=== PATIENT | female | born 1950 ===

== ENCOUNTER 2017-12-13 07:33 | Emergency (ER) | payer OTHER, MEDICARE ==
[~2017-12-13 07:33] MED LIST: METH2.5 OR; TRAV0.00 EACH EYE; ZOLO100T OR
[2017-12-13 07:36] VITALS: BP 137/67; PULSE 49; RESP 16; TEMP 97.5; O2SAT 96
--- NOTE | 2017-12-13 07:49 | PD ---
HPI Chief Complaint: Fall, head injury Time Seen by Provider: 07:49 Travel History International Travel<30 days: No Contact w/Intl Traveler<30days: No Traveled to known affect area: No History of Present Illness HPI 67-year-old female came to the emergency room after she tripped and fall over her puppy at 630 this morning and hit her head on the wall in front of her. Patient instantly started developing a large hematoma of her scalp and forehead. She had some abrasion of her forehead as well. She has been applying ice pack but she is here with her daughter who brought her into the emergency room. No history of loss of consciousness or syncopal episode. Patient is on one baby aspirin every day. Patient does not recall her last tetanus shot. Patient is complaining of headache and nausea. She took 3 Tylenol before coming in. [facility] Past Medical History Narrative Medical List of her past medical, surgical, social and family history is reviewed from the nursing note. Social History Tobacco Use: No Substance Use: No Allergies-Medications (Allergen,Severity, Reaction): Coded Allergies: codeine (Unverified Allergy, Mild, Rash, 12/13/17) Comments List of her allergies reviewed from the nursing note. Reported Meds & Prescriptions Reported Meds & Active Scripts Active Zofran Odt (Ondansetron Odt) 4 Mg Tab 4 Mg SL Q6HR PRN Bacitracin Topical 500 Unit/Gm Oint 1 Applic TOPICAL BID Reported Ginkgo Biloba (Ginkgo Biloba Hugoton Extract) 60 Mg Tablet 1 Tab PO DAILY Multi Vitamin Daily (Multiple Vitamin) 1 Tab Tab 1 Tab PO DAILY Glucosamine (Glucosamine Sulfate) 1,000 Mg Cap 2,000 Mg PO DAILY Garlic Oil 1000 (Garlic) 1,000 Mg Cap 1 Cap PO DAILY Aspirin Low Dose (Aspirin) 81 Mg Chew 81 Mg CHEW DAILY Turmeric (Turmeric (Curcuma Longa)) 450 Mg-50 Mg Cap 1 Cap PO DAILY Folic Acid 0.8 Mg Cap 1,600 Mcg PO DAILY Vitamin B-6 (Pyridoxine HCl) 100 Mg Tab 100 Mg PO DAILY Vitamin B-12 (Cyanocobalamin) 500 Mcg Subl 500 Mcg SL DAILY Calcipotriene Topical (Calcipotriene) 0.005% Cream 1 Applic TOPICAL BID Cormax Scalp Topical (Clobetasol Propionate) 0.05% Soln 1 Applic TOPICAL BID [tropicort] 0.25 % TOPICAL DIRECTED Sertraline (Sertraline HCl) 100 Mg Tab 100 Mg PO DAILY Methotrexate 2.5 Mg Tab 17.5 Mg PO Q7D Travatan Z Opth Drops (Travoprost) 0.004 % Soln 1 Drop EACH EYE HS Dorzolamide-Timolol Opth Drops 22.3-6.8 Mg/Ml Soln 1 Drop EACH EYE BID Narrative Medication List of her home medications reviewed from the nursing note. Review of Systems Except as stated in HPI: all other systems reviewed are Neg Neurologic: Positive: Headache Physical Exam Narrative GENERAL: Awake, alert, moderate distress SKIN: Focused skin assessment warm/dry. Abrasion on the right side of the forehead, no active bleeding HEAD: Frontal scalp abrasion, large hematoma extending from the frontal scalp all the way to the forehead with bogginess EYES: Pupils equal and round. No scleral icterus. No injection or drainage. ENT: No nasal bleeding or discharge. Mucous membranes pink and moist. NECK: Trachea midline. No JVD. CARDIOVASCULAR: Regular rate and rhythm. No murmur appreciated. RESPIRATORY: No accessory muscle use. Clear to auscultation. Breath sounds equal bilaterally. GASTROINTESTINAL: Abdomen soft, non-tender, nondistended. Hepatic and splenic margins not palpable. MUSCULOSKELETAL: No obvious deformities. No clubbing. No cyanosis. No edema. NEUROLOGICAL: Awake and alert. No obvious cranial nerve deficits. Motor grossly within normal limits. Normal speech. PSYCHIATRIC: Appropriate mood and affect; insight and judgment normal. Data Data Last Documented VS Vital Signs Date Time Temp Pulse Resp B/P (MAP) Pulse Ox O2 Delivery O2 Flow Rate FiO2 12/13/17 09:39 51 16 129/66 (87) 98 12/13/17 07:[address] Brain W/O Iv Contrast(Rout) (12/13/17 ) Ct Cerv Spine W/O Contrast (12/13/17 ) Metoclopramide (Reglan) (12/13/17 08:00) Ibuprofen (Motrin) (12/13/17 09:00) Tetanus/Diphtheria Tox Adult (Tetanus/Di (12/13/17 09:15) Ed Discharge Order (12/13/17 09:14) MDM Medical Decision Making Medical Screen Exam Complete: Yes Emergency Medical Condition: Yes Medical Record Reviewed: Yes Differential Diagnosis Intracranial bleed, hematoma, concussion Narrative Course 8:49 AM patient has been given meat medication for nausea. CAT scan has been done and I looked at the images myself. Besides the soft tissue hematoma there is no intracranial bleed that I noticed. Awaiting for the read from the radiologist. Patient will be given something more for pain at this point. She is applying ice pack to the swelling. 9:[address] scan of the brain shows a large scalp hematoma but no intracranial bleed and CT scan of the cervical spine is negative. Patient will be discharged home. Procedures EKG Prior to Arrival: No Diagnosis Primary Impression: Fall Qualified Codes: W19.XXXA - Unspecified fall, initial encounter Additional Impressions: Head injury Qualified Codes: S09.90XA - Unspecified injury of head, initial encounter Cephalhematoma Referrals: Primary Care Physician Additional Instructions: Continue putting ice pack on the head to keep the swelling down. It is normal after a large hematoma like this for facial bruising and bruising around her eyes to appear from gravity draining the hematoma. Keep the wound clean and dry. Apply the ointment as per the prescription direction. Return to the ER if the condition worsens or any other new concerns. Take Tylenol for headache Med/Other Pt SpecificInfo: Prescription(s) given Scripts Ondansetron Odt (Zofran Odt) 4 Mg Tab 4 MG SL Q6HR Y for Nausea/Vomiting, #10 TAB 0 Refills Prov: Jose E Eugene MD 12/13/17 Bacitracin Topical (Bacitracin Topical) 500 Unit/Gm Oint 1 APPLIC TOPICAL BID for Infection, #30 GM 0 Refills Prov: Jose E Eugene MD 12/13/17 Disposition: DISCHARGE HOME Condition: Stable Jose E Eugene MD December 13, 2017 07:49
[2017-12-13] MEDS ORDERED: METOCLOPRAMIDE HCL 10 MG TAB PO ONE (08:00)
[2017-12-13] MEDS ORDERED: MULT1TAB46 PO (08:29)
[2017-12-13] MEDS ORDERED: CLOB-23 TOPICAL (08:29)
[2017-12-13] MEDS ORDERED: FOLI1CAP7 PO (08:29)
[2017-12-13] MEDS ORDERED: GARL1000 PO (08:29)
[2017-12-13] MEDS ORDERED: TRAV0.00 EACH EYE (08:29)
[2017-12-13] MEDS ORDERED: DESOXIMETASONE TOPICAL (08:29)
[2017-12-13] MEDS ORDERED: SERT-129 PO (08:29)
[2017-12-13] MEDS ORDERED: GLUC100013 PO (08:29)
[2017-12-13] MEDS ORDERED: PYRI100T PO (08:29)
[2017-12-13] MEDS ORDERED: VITA500S3 SL (08:29)
[2017-12-13] MEDS ORDERED: ASPI81CH6 CHEW (08:29)
[2017-12-13] MEDS ORDERED: CALC0.009 TOPICAL (08:29)
[2017-12-13] MEDS ORDERED: GINK60TA10 PO (08:29)
[2017-12-13] MEDS ORDERED: DORZ2SOL15 EACH EYE (08:29)
[2017-12-13] MEDS ORDERED: TURM500C3 PO (08:29)
[2017-12-13] MEDS ORDERED: METH2.5T PO (08:29)
--- NOTE | 2017-12-13 08:55 | RADRPT ---
EXAM DATE: 12/13/2017 8:17 AM EDT AGE/SEX: 67 years / Female INDICATIONS: Fall hit head this morning CLINICAL DATA: This is the patient's initial encounter. Patient reports that signs and symptoms have been present for 1 day and indicates a pain score of 3/10. MEDICAL/SURGICAL HISTORY: None. None. RADIATION DOSE: 59.09 CTDI (mGy) COMPARISON: No prior [place] exams available for comparison. TECHNIQUE: CT of the head without contrast. Using automated exposure control and adjustment of the mA and/or kV according to patient size, radiation dose was kept as low as reasonably achievable to ob tain optimal diagnostic quality images. FINDINGS: Cerebrum: The ventricles are normal for age. No evidence of midline shift, mass lesion, hemorrhage o r acute infarction. No extraaxial fluid collections are seen. Posterior Fossa: The cerebellum and brainstem are intact. The 4th ventricle is midline. The cerebe llopontine angle is unremarkable. Extracranial: The visualized portion of the orbits is intact. Large frontal scalp hematoma. Skull: The calvaria is intact. No evidence of skull fracture. CONCLUSION: 1. Large frontal scalp hematoma. 2. No acute intracranial abnormality. Electronically signed by: Riceky Kumar MD 12/13/2017 8:54 AM EDT
[2017-12-13] MEDS ORDERED: IBUPROFEN 600 MG TAB PO ONE (09:00)
--- NOTE | 2017-12-13 09:10 | RADRPT ---
EXAM DATE: 12/13/2017 8:23 AM EDT AGE/SEX: 67 years / Female INDICATIONS: Fall hit head this morning CLINICAL DATA: This is the patient's initial encounter. Patient reports that signs and symptoms have been present for 1 day and indicates a pain score of 4/10. MEDICAL/SURGICAL HISTORY: None. None. RADIATION DOSE: 25.00 CTDI (mGy) COMPARISON: No prior [place] exams available for comparison. TECHNIQUE: Contiguous axial images were obtained using helical multirow detector technique. The vol umetric data was post-processed with multiplanar reconstruction in oblique axial, sagittal, and coron al planes. Using automated exposure control and adjustment of the mA and/or kV according to patient s ize, radiation dose was kept as low as reasonably achievable to obtain optimal diagnostic quality jason ges. FINDINGS: OSSEOUS STRUCTURES: Vertebral body heights are maintained. Osseous structures are intact without evid ence for acute bony fracture. Dens is intact. ALIGNMENT: Sagittal alignment is maintained. There is a normal C1-2 relationship. Facets are normally aligned. SOFT TISSUES: There is no significant prevertebral soft tissue hematoma. No significant cervical nathaniel opathy or gross mass. The thyroid appears unremarkable. Visualized lung apices are clear without pneu mothorax. ADDITIONAL FINDINGS: Multilevel degenerative spondylosis of the cervical spine most prominently at C4 -5 and C5-6 with disc space narrowing and osteophyte formation. Bony central canal is patent. Mild bi lateral bony neural foraminal narrowing at both levels. CONCLUSION: 1. No acute fracture or subluxation. Electronically signed by: Rickey Kumar MD 12/13/2017 9:08 AM EDT
[2017-12-13] MEDS ORDERED: TETANUS/DIPHTHERIA TOXOID ADULT 0.5 ML VIAL IM ONE (09:15)
[2017-12-13] MEDS ORDERED: BACI500O9 TOPICAL (09:17)
[2017-12-13] MEDS ORDERED: ZOFR4TAB3 SL (09:17)
[2017-12-13 09:39] VITALS: BP 129/66
== END 2017-12-13 09:48 | disposition home or self-care (01) ==
LOC: PHED 07:33
DX: S00.03XA Contusion of scalp, initial encounter (principal); S00.81XA Abrasion of other part of head, initial encounter; W01.0XXA Fall on same level from slipping, tripping and stumbling without subsequent striking against object, initial encounter; R11.0 Nausea
CPT/HCPCS: 70450; 72125; 90471; 90714